=== PATIENT | female | born 1935 | race Caucasian/White ===

== ENCOUNTER 2019-06-29 08:47 | Emergency (ER) | payer MEDICARE, BC ==
[~2019-06-29] VITALS: Ht 157.5 cm; Wt 57.7 kg
[2019-06-29] MEDS ORDERED: ZESTRIL 10MG10 MG PO (09:31)
[2019-06-29] MEDS ORDERED: LIPITOR 10MG10 MG PO (09:33)
[2019-06-29] MEDS ORDERED: ASPIRIN 81M81 MG/TA2 PO (09:42)
[2019-06-29] MEDS ORDERED: TOPROL XL 25MG25 MG PO (09:43)
[2019-06-29] MEDS ORDERED: FISH OIL 1000MG1 CAP PO (09:44)
[2019-06-29] MEDS ORDERED: LEVOXYL0.05 MG PO (09:44)
[2019-06-29] MEDS ORDERED: HCTZ12.5TAB PO (09:45)
[2019-06-29 10:14] LABS: BASO # 0.1 (0.0-0.2); BASO % 0.5 % (0.0-2.0); EOS # 0.2 (0.0-0.7); EOS % 1.8 % (0-4.0); GRAN # 7.6 (1.4-6.5); GRAN % 78.6 % (42.2-75.2); HEMOGLOBIN 10.1 g/dl (12.5-16.0); LYMPH # 1.3 (1.2-3.4); LYMPH % 13.4 % (20.0-51.0); MEAN CELL VOLUME 98 fl (80.0-100.0); MEAN CORPUSCULAR HEMOGLOBIN 32 pg (27.0-31.0); MEAN CORPUSCULAR HGB CONC 32 g/dl (33.0-37.0); MONO # 0.5 (0.1-0.6); MONO % 5.3 % (1.7-9.3); PLATELET COUNT 196 K/mm3 (130-400); REDCELL DISTRIBUTION WIDTH-CV 12.1 % (11.5-14.5)
[2019-06-29 10:18] LABS: HEMATOCRIT 31.2 % (37.0-47.0)
[2019-06-29 10:24] LABS: ALBUMIN 3.7 gm/dL (3.5-5.0); BILIRUBIN,TOTAL 0.4 mg/dL (0.0-1.0); CALCIUM 9.8 mg/dL (8.4-10.2); CREATININE, serum 1.08 (0.52-1.25); POTASSIUM 4.2 mmol/L (3.4-5.0); TOTAL PROTEIN 6.2 gm/dL (6.4-8.2)
[2019-06-29] MEDS ORDERED: NORCO 325 MG-51 TAB PO (12:03)
[2019-06-29 12:32] VITALS: BP 129/66; PULSE 71
== END 2019-06-29 12:35 | disposition home or self-care (01) ==
LOC: COL.ER 08:47 → EDBD 08:48 → COL.ER 08:48
PROVIDERS: Emergency Medicine
DX: S42.252A Displaced fracture of greater tuberosity of left humerus, initial encounter for closed fracture (principal); E78.00 Pure hypercholesterolemia, unspecified; I10 Essential (primary) hypertension; E03.9 Hypothyroidism, unspecified; Z90.710 Acquired absence of both cervix and uterus; Z79.82 Long term (current) use of aspirin; W01.0XXA Fall on same level from slipping, tripping and stumbling without subsequent striking against object, initial encounter; Y92.009 Unspecified place in unspecified non-institutional (private) residence as the place of occurrence of the external cause
CPT/HCPCS: J2405; J2704; J3010; J7030; Q9967

== ENCOUNTER 2019-07-01 10:07 | Emergency (ER) | payer MEDICARE, BC ==
[~2019-07-01] VITALS: Ht 157.5 cm; Wt 57.7 kg
[~2019-07-01 10:07] MED LIST: ASPIRIN 81M81 MG/TA2 PO; FISH OIL 1000MG1 CAP PO; HCTZ12.5TAB PO; LEVOXYL0.05 MG PO; LIPITOR 10MG10 MG PO; NORCO 325 MG-51 TAB PO; TOPROL XL 25MG25 MG PO; ZESTRIL 10MG10 MG PO
[2019-07-01 10:25] VITALS: BP 116/59; TEMP 98
[2019-07-01 11:35] VITALS: PULSE 63
== END 2019-07-01 11:35 | disposition home or self-care (01) ==
LOC: COL.ER 10:07
DX: S42.92XA Fracture of left shoulder girdle, part unspecified, initial encounter for closed fracture (principal); M79.642 Pain in left hand; E03.9 Hypothyroidism, unspecified; E78.5 Hyperlipidemia, unspecified; Z90.710 Acquired absence of both cervix and uterus; Z79.82 Long term (current) use of aspirin; W19.XXXA Unspecified fall, initial encounter; Y92.009 Unspecified place in unspecified non-institutional (private) residence as the place of occurrence of the external cause